=== PATIENT | male | born 1960 | race Caucasian/White ===

== ENCOUNTER 2019-12-04 03:05 | Emergency (ER) | payer OTHER ==
[2019-12-04 03:25] VITALS: RESP 18; TEMP 98.5
[2019-12-04] MEDS ORDERED: TOPICAL SKIN ADHESIVE 1 EACH AMP TOPICAL ONE (03:48)
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
[2019-12-04 04:08] VITALS: BP 148/89; PULSE 92
== END 2019-12-04 04:08 | disposition home or self-care (01) ==
LOC: EC 03:05
DX: S01.81XA Laceration without foreign body of other part of head, initial encounter (principal); Y04.8XXA Assault by other bodily force, initial encounter
CPT/HCPCS: 12011; 99282